=== PATIENT | female | born 1995 | race Caucasian/White ===

== ENCOUNTER 2018-06-23 17:33 | Inpatient (IN) | payer OTHER ==
[2018-06-23 18:11] LABS: APPEARANCE,URINE SLIGHTLY-CLOUDY; BILIRUBIN,URINE NEGATIVE (NEGATIVE); COLOR,URINE YELLOW; GLUCOSE, URINE NEGATIVE (NEGATIVE); KETONES,URINE TRACE mg/dL (NEGATIVE); LEUKOCYTE ESTERASE,URINE NEGATIVE (NEGATIVE); NITRITE,URINE NEGATIVE (NEGATIVE); PROTEIN,URINE NEGATIVE (NEGATIVE); URINE SPECIFIC GRAVITY 1.018; UROBILINOGEN,URINE NEGATIVE mg/dL (<2.0)
[2018-06-23 18:23] LABS: URINE AMPHETAMINES SCREEN NEGATIVE; URINE BARBITURATES SCREEN NEGATIVE; URINE BENZODIAZEPINES SCREEN NEGATIVE; URINE COCAINE SCREEN NEGATIVE; URINE MARIJUANA (THC) SCREEN NEGATIVE; URINE METHADONE SCREEN NEGATIVE; URINE PHENCYCLIDINE SCREEN NEGATIVE
[2018-06-23] MEDS ORDERED: AMPICILLIN SOD INJ 2 GM VIAL IV ONE (18:44)
[2018-06-23 18:50] LABS: ABSOLUTE BASOPHILS # (AUTO) 0.1 10^3/uL (0.0-0.2); ABSOLUTE LYMPHOCYTES (AUTO) 2.5 10^3/uL (0.5-4.7); ABSOLUTE MONOCYTES (AUTO) 0.8 10^3/uL (0.1-1.4); ABSOLUTE NEUT (AUTO) 10.4 10^3/uL (1.7-8.2); BASOPHILS % (AUTO) 0.4 % (0-2); EOSINOPHILS % (AUTO) 0.3 % (0-6); HEMATOCRIT 40.1 % (36.0-47.0); LYMPHOCYTES % (AUTO) 18.2 % (13-45); MEAN CORPUSCULAR HGB CONC 34.8 g/dL (32.0-36.0); MEAN CORPUSCULAR VOLUME 89 fl (80-97); MONOCYTES % (AUTO) 5.7 % (3-13); PLATELET COUNT 218 10^3/uL (150-450); RED BLOOD COUNT 4.51 10^6/uL (3.72-5.28); RED CELL DISTRIBUTION WIDTH 12.4 % (11.5-14.0); SEGMENTED NEUTROPHILS % (AUTO) 75.4 % (42-78); TOTAL CELLS COUNTED % (AUTO) 100 %; WHITE BLOOD COUNT 13.8 10^3/uL (4.0-10.5)
[2018-06-23] MEDS ORDERED: AZITHROMYCIN 250 MG TABLET ONE (18:55)
[2018-06-23] MEDS ORDERED: BETAMET ACET/BETAMET NA INJ 6 MG/1 ML ONE (18:57)
[2018-06-23] MEDS ORDERED: AMPICILLIN SOD INJ 2 GM VIAL ONE (18:59)
[2018-06-23] MEDS ORDERED: AMPICILLIN SOD INJ 2 GM VIAL IM SCH (19:00)
[2018-06-23] MEDS ORDERED: AMPICILLIN SOD INJ 2 GM VIAL IV SCH (19:15)
[2018-06-23] MEDS ORDERED: BETAMET ACET/BETAMET NA INJ 6 MG/1 ML IM ONE (19:15)
[2018-06-23] MEDS ORDERED: AZITHROMYCIN 250 MG TABLET PO ONE (19:30)
--- NOTE | 2018-06-23 19:41 | RADIOLOGY REPORT (SQ) ---
EXAM DESCRIPTION: U/S OB LIMITED COMPLETED DATE/TIME: 06/23/2018 7:25 pm REASON FOR STUDY: ruptured,fetusweight,position,cervical length COMPARISON: None. TECHNIQUE: Limited transabdominal grayscale ultrasound for evaluation of specific requested obstetri munir parameters. LIMITATIONS: None. FINDINGS: CERVICAL LENGTH: Not well seen. Closed. BRENDEN: 8.1 cm. FHR: 133 beats per minute. PRESENTATION: Cephalic. PLACENTA: Anterior and fundal. ANATOMY: Not assessed OTHER: 35 week gestation. IMPRESSION: LIMITED OBSTETRICAL ULTRASOUND WITH MEASURED PARAMETERS DELINEATED ABOVE. Trimester of : Third trimester - 28 weeks to delivery. TECHNICAL DOCUMENTATION: JOB ID: [id number] [email or web address]- All Rights Reserved Reading location - IP/workstation name: [email or web address]
--- NOTE | 2018-06-23 19:42 | Admission Physical ---
Datetime Report Generated by CPN: 06/23/2018 19:41 CURRENT ADMISSION Chief Complaint: Suspected Ruptured Membranes Indication for Induction: Other Indication for Induction- Other: PPROM Admit Impression : , Intrauterine ; Ruptured Membranes Admit Plan: Admit to Unit; Observation/Evaluation Admit Plan- Other: Discussed with Location Analyst. She requests steroid series prior to delivery. Also plan antibioics. Sono. ALLERGIES Medication Allergies: No Medication Allergies: No Known Allergies (06/23/2018) Latex: No Latex Allergies Food Allergies: N/A Environmental Allergies: N/A OBSTETRICAL HISTORY EDC: 07/29/2018 00:00 : 1 Para: 0 Gestational Diabetes: No Rh Sensitization: No Incompetent Cervix: No MERLINE: No Infertility: No ART Treatment: No Uterine Anomaly: No IUGR: No Hx Previous C/S: No Macrosomia: No Hx Loss/Stillborn: No PIH: No Hx : No Placenta Previa/Abruption: No Depression/PP Depression: No PTL/PROM: No Post Hemorrhage: No Current Procedures: Ultrasound; NST SEE RECORDS Alcohol: No Marijuana : No Cocaine: No Other Illicit Drugs: No Cigarettes: Never Smoker. 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: No Heart Disease: No Hosp/Surgery: Yes Autoimmune Disorder: No Anesthetic Complications: No Kidney Disease: No Abnormal Pap Smear: No Neuro/Epilepsy: No Psychiatric Disorders: No Other Medical Diseases: No Hepatitis/Liver Disease: No Significant Family History: No Varicosities/Phlebitis: No Trauma/Violence : No Thyroid Dysfunction: No PHYSICAL EXAM General: Normal HEENT: Normal Neurologic: Normal Thyroid: Normal Heart: Normal Lungs: Normal Breast: Deferred Back: Normal Abdomen: Normal Genitourinary Exam: Deferred Extremities: Normal DTRs: Normal Pelvic Type: Adequate Vital Signs: Reviewed MEMBRANES Membranes: Ruptured FETUS A EGA: 34.6 FHR- Baseline: 120 Variability: Moderate 6-25bpm Decelerations: None FHR Category: Category I Presentation: Vertex Admit Comment: Plan antibiotics and steroids per Neonatology. If she does not labor we can then proceed with an induction. PLANS FOR LABOR AND DELIVERY Labor and Delivery: None Pain Management: Natural Feeding Preference: Breast Benefit of Breast Feed Discussed: Yes Circumcision: Yes INFORMED CONSENT Signature: with User ID: [email or web address]
[2018-06-23 19:57] LABS: RUBELLA INTERPRETATION POSITIVE
[2018-06-23] MEDS ORDERED: RINGERS SOLUTION,LACTATED 1,000 ML IV PRN (21:31)
[2018-06-23] MEDS ORDERED: MAGNESIUM SULFATE 20 GM/500 ML RTUINJ IV PRN (21:55)
[2018-06-23] MEDS ORDERED: MAGNESIUM SULFATE 4 GM/100 ML RTUPB IV ONE ×2 (21:55→22:09)
--- NOTE | 2018-06-23 22:08 | L&D Progress Notes ---
PROGRESS NOTES Datetime Report Generated by CPN: 06/23/2018 22:07 PROGRESS NOTE Comment: Sono shows a much smaller baby than expected. She also has begun corry irregularly. Sterile spec show her cervix to be about 3 cm visually. We will begin MgSO4 and consider transfer if possible. LAST VAGINAL EXAM-NURSING Dilitation: 3.0 MEMBRANES Membranes: Ruptured FETUS A : 34.6 Presentation: Vertex SIGNATURE SIGNATURE: [id number] SIGNATURE: [id number] Signature: with User ID: [email or web address]
[2018-06-23] MEDS ORDERED: MAGNESIUM SULFATE 20 GM/500 ML RTUINJ IV ONE (22:09)
[2018-06-23 22:15] LABS: CHLAM PCR NOT DETECTED (NOT DETECT); GON PCR NOT DETECTED (NOT DETECT)
--- NOTE | 2018-06-23 22:48 | PDOC TRANSFER SUMMARY ---
General Admission Date/PCP: 06/23/18 18:20 Admission Date: 06/23/18 Transfer Date: 06/23/18 Accepting Facility: [facility] Accepting Physician: Dr Harper - Transfer Diagnosis (1) premature rupture of membranes Is this a current diagnosis for this admission?: Yes - Transfer Medications Home Medications: No122/Iron/Folic Acid [ Multi Tablet] 1 tab PO DAILY 06/23/18 Transfer Medications: Current Medications Ampicillin Sodium (Omnipen Inj 2 Gm Vial) 2 gm IV Q6 ROGELIO Stop: 06/30/18 19:14 Last Admin: 06/23/18 19:25 Dose: 2 gm Betamethasone Acet/Betameth SodPhos (Celestone Inj 6 Mg/1 Ml) 12 mg IM DAILY ROGELIO Stop: 06/24/18 07:30 Lactated Ringer's (Lactated Ringers 1000 Ml Iv Soln) 1,000 mls @ 125 mls/hr IV CONTINUOUS PRN PRN Reason: THIS MED IS NOT "PRN" Stop: 07/23/18 21:30 Magnesium Sulfate (Magnesium Sulfate Rtu 4 Gm/100 Ml Premix Bag) 4 gm in 100 mls @ 300 mls/hr IV NOW ONE Stop: 06/23/18 22:14 Magnesium Sulfate (Magnesium Sulfate Rtu 20 Gm/500 Ml Premix) 20 gm in 500 mls @ 50 mls/hr IV CONTINUOUS PRN PRN Reason: THIS MED IS NOT "PRN" Stop: 07/23/18 21:54 - Allergies Allergies/Adverse Reactions: No Known Allergies Allergy (Unverified 06/23/18 18:08) - Diet/Activity Discharge Activity: [employer] Conservation Hospital Course Hospital Course: She was admitted and started on antibiotics. Neonatology requested steroids. She had a sono which shows a large weight discrepancy. EFW is 2lb 14 oz placing her at EGA of 29 wk 4 days. She should be 34 wk 6 days by lmp and 20 wk sono. Because of the low EFW nursery has asked us to transfer. Physical Exam Vital Signs: Intake & Output 06/22/18 06/23/18 06/24/18 06:59 06:59 06:59 Weight 78.5 kg Results Laboratory Results: 06/23/18 18:34 06/23/18 06/23/18 06/23/18 17:45 18:34 18:34 WBC 13.8 H RBC 4.51 Hgb 14.0 Hct 40.1 MCV 89 MCH 31.0 MCHC 34.8 RDW 12.4 Plt Count 218 Seg Neutrophils % 75.4 Lymphocytes % 18.2 Monocytes % 5.7 Eosinophils % 0.3 Basophils % 0.4 Absolute Neutrophils 10.4 H Absolute Lymphocytes 2.5 Absolute Monocytes 0.8 Absolute Eosinophils 0.0 Absolute Basophils 0.1 Urine Color YELLOW Urine Appearance SLIGHTLY-CLOUDY Urine pH 6.0 Ur Specific [place] 1.018 Urine Protein NEGATIVE Urine Glucose (UA) NEGATIVE Urine Ketones TRACE H Urine Blood NEGATIVE Urine Nitrite NEGATIVE Ur Leukocyte Esterase NEGATIVE Urine WBC (Auto) 1 Urine RBC (Auto) 1 Blood Type O POSITIVE Antibody Screen NEGATIVE Impressions: Obstetrics Ultrasound 06/23/18 00:00 IMPRESSION: LIMITED OBSTETRICAL ULTRASOUND WITH MEASURED PARAMETERS DELINEATED ABOVE. Trimester of : Third trimester - 28 weeks to delivery. Plan Discharge Plan: Plan transfer to tertiary care.
[2018-06-24] MEDS ORDERED: AMPICILLIN SOD INJ 2 GM VIAL IV SCH
[2018-06-24] MEDS ORDERED: BETAMET ACET/BETAMET NA INJ 6 MG/1 ML IM SCH (07:00)
[2018-06-25 08:42] LABS: HEPATITIS C VIRUS AB <0.1 s/co ratio (0.0-0.9)
[2018-06-25 09:01] LABS: HEPATITS B SURFACE ANTIGEN Negative (Negative)
== END 2018-06-24 00:05 | disposition short-term general hospital (02) | DRG 833 ==
LOC: LC 17:33 → LR 18:20
PROVIDERS: ADMIT Obstetrics & Gynecology; ATTEND Obstetrics & Gynecology
PROC: 4A1HXCZ Monitoring of Products of Conception, Cardiac Rate, External Approach (ICD-10-PCS; principal; 2018-06-23)
DX: O42.913 Preterm premature rupture of membranes, unspecified as to length of time between rupture and onset of labor, third trimester (principal); O36.5930 Maternal care for other known or suspected poor fetal growth, third trimester, not applicable or unspecified; Z3A.34 34 weeks gestation of pregnancy
CPT/HCPCS: 36415; 76815; 80307; 81001; 84112; 85025; 86592; 86701; 86762; 86803; 86804; 86850; 86900; 86901; 87077; 87081; 87340; 87491; 87591; J0290; J0702; J3475

== ENCOUNTER → 2020-04-23 | Outpatient (CLI) | payer OTHER ==
[2020-04-23 13:01] VITALS: BP 108/71
--- NOTE | 2020-04-23 13:01 | ER RDC ASSESSMENT REPORT ---
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 [employer] - Symptoms Subjective Fever(Alpine feverish): No Chills: No Muscule Aches: Yes Runny Nose: Yes Sore Throat: No Cough (New or worsening chronic cough): Yes Shortness of breath: No Nausea or Vomiting: Yes Headache: Yes Abdominal Pain: No Diarrhea(3 or more loose stools in last 24 hours): Yes - Do you have any of the following Chronic lung disease: Asthma or emphysema or COPD: No Cystic Fibrosis: No Diabetes: No High Blood Pressure: No Cardiovascular Disease: No Chronic Kidney Disease: No Chronic Liver Disease: No Chronic blood disorder like Sickle Cell Disease: No Weak immune system due to disease or medication: No Neurologic condition that limits movement: No Developmental delay - Moderate to Severe: No Recent (within past 2 weeks) or current : No Morbid Obesity (>100 pounds over ideal weight): No Obesity Comment: Height 5 feet 4 inches weight 145 pounds - Objective Temperature: 97.8 F Pulse Rate: 96 Respiratory Rate: 18 Blood Pressure: 108/71 O2 Sat by Pulse Oximetry: 98 Objective: Given above, testing performed: If Testing Performed: Test Specimen Type Sent to General - General Information source: Patient Notes: Patient here at [facility] for COVID testing patient reports had exposure to somebody known positive for COVID over a week ago ( Husbands friend). patient started having symptoms 4 days ago beginning with muscle aches sore throat runny nose and a cough. Patient also experienced a headache nausea and diarrhea. Patient did have flu shot last Thursday. 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 Since PCP is with [facility]. - Related Data Allergies/Adverse Reactions: No Known Allergies Allergy (Unverified 06/23/18 18:08) Past Medical History - General Information source: Patient - Social History Smoking Status: Never Smoker Physical Exam - General General appearance: Appears well, Alert In distress: None Notes: PHYSICAL EXAMINATION: GENERAL: Well-appearing and in no acute distress. HEAD: Atraumatic, normocephalic. EYES: sclera anicteric, conjunctiva are normal. ENT: nares patent. Moist mucous membranes. NECK: Normal range of motion, supple without lymphadenopathy LUNGS: CTAB and equal. No wheezes rales or rhonchi. Respirations even and unlabored lung sounds clear. HEART: Regular rate and rhythm without murmurs ABDOMEN: Soft, nontender, normal bowel sounds, no guarding. EXTREMITIES: Normal range of motion, no pitting edema. No cyanosis. NEUROLOGICAL: Cranial nerves grossly intact. Normal speech. Normal gait. PSYCH: Normal mood, normal affect. SKIN: Warm, Dry, normal turgor, no rashes or lesions noted Diagnostic Results Laboratory Results: Patient informed of negative rapid strep and negative rapid flu results pending strep culture pending covid testing results. Patient provided instructions regarding COVID to include: As a person under investigation for Covid 19, the [place] department of Health and Human Services, division of public health advises you to adhere to the following guidance until your test results are reported to you. If your test result is positive, you will receive additional information from your provider and your local health department at that time. Remain at home until you are cleared by the health provider or public health authorities. Keep a log of visitors to your home, notify any visitors to your home of your isolation status. If you plan to move to a new address or leave the [facility], notify the local health department in your County. Call your doctor or seek care if you have an urgent medical need. Before seeking medical care, call ahead to get instructions from the provider before arriving at the medical office clinic or hospital. Notify them that you are being tested for the virus that causes Covid 19 so that arrangements can be made, as necessary, to prevent transmission to others in the healthcare setting. Next, notify the local health department in your county. If a medical emergency arises and you need to call 911, inform the first responders that you are being tested for the virus that causes Covid 19. Next, notify the local health department in your county. Patient Education/Counseling Counseling/Education: Patient presents with upper respiratory symptoms worrisome for possible Covid 19. Patient does not have emergency worring symptoms such as difficulty breathing, shortness of breath, chest pain, pressure, confusion or cyanosis. Patient appears suitable for discharge. Patient instructed to follow-up with PCP today. To ED for persistent or worsening symptoms. Patient's vital signs are stable and patient is nontoxic in appearance. Good return precautions have been discussed with patient, patient verbalized understanding and is agreeable with discharge plan of care at this time. RDC Discharge - Discharge Condition: Stable Disposition: Home; Selfcare
[2020-04-23 14:07] LABS: A TYPE INFLUENZA AG NEGATIVE (NEGATIVE); B INFLUENZA AG NEGATIVE (NEGATIVE)
== END ==
LOC: RDC 12:29
PROVIDERS: ATTEND Nurse Practitioner Family
DX: Z20.828 Contact with and (suspected) exposure to other viral communicable diseases (principal); R05 Cough; R09.89 Other specified symptoms and signs involving the circulatory and respiratory systems; M79.10 Myalgia, unspecified site; R11.0 Nausea; R51 Headache; R19.7 Diarrhea, unspecified
CPT/HCPCS: 87070; 87880; 87635; 87804; C9803; 99201; 99211